=== PATIENT | female | born 1990 | race Caucasian/White ===

== ENCOUNTER 2024-12-10 18:14 | Emergency (ER) | payer BC, OTHER ==
[2024-12-10] MEDS: Lidocaine 2% Viscous Solution 15 ML UD PO ONE (18:40)
[2024-12-10] MEDS: Aluminum Hydroxide/Magnesium Hydroxide/Simethicone Susp 30 ML Cup PO ONE (18:40)
[2024-12-10 18:52] LABS: BASOPHILS ABSOLUTE AUTO 0.01 K/uL (0.00-0.20); BASOPHILS PERCENT AUTO 0.1 % (0.0-2.0); EOSINOPHILS ABSOLUTE AUTO 0.07 K/uL (0.00-0.50); EOSINOPHILS PERCENT AUTO 0.8 % (0.0-5.0); HEMATOCRIT 36.4 % (34.0-46.0); HEMOGLOBIN 12.4 g/dL (11.7-15.5); IMMATURE GRAN ABSOLUTE AUTO 0.01 10^3/uL (0.00-0.04); IMMATURE GRAN PERCENT AUTO 0.1 % (0.0-0.4); LYMPHOCYTES ABSOLUTE AUTO 1.97 K/uL (0.50-3.50); LYMPHOCYTES PERCENT AUTO 21.6 % (10.0-50.0); MEAN CORPUSCULAR HEMOGLOBIN 29.6 pg (28.2-33.3); MEAN CORPUSCULAR HGB CONC 34.1 g/dL (31.7-36.0); MEAN CORPUSCULAR VOLUME 86.9 fL (84.0-98.0); MONOCYTES ABSOLUTE AUTO 0.88 K/uL (0.00-1.00); MONOCYTES PERCENT AUTO 9.7 % (2.0-14.0); NEUTROPHILS ABSOLUTE AUTO 6.16 K/uL (1.40-7.00); NEUTROPHILS PERCENT AUTO 67.7 % (45.0-80.0); PLATELET COUNT,PLT 252 K/uL (150-350); RED BLOOD CELL COUNT 4.19 M/uL (3.77-5.09); RED CELL DISTRIBUTION WIDTH 12.4 % (11.2-14.1); WHITE BLOOD CELL COUNT,WBC 9.1 K/uL (4.0-10.2)
[2024-12-10 19:07] LABS: ALANINE AMINOTRANSFERASE,ALT 17 U/L (12-78); ALBUMIN 3.5 g/dL (3.4-5.0); ALKALINE PHOSPHATASE 98 IU/L (46-116); ANION GAP 7.8 meq/L (7-15); ASPARTATE AMNIOTRANSFERASE,AST 10 U/L (15-37); BILIRUBIN TOTAL 0.3 mg/dL (0.2-1.0); BLOOD UREA NITROGEN,BUN 15 mg/dL (7-18); CALCIUM 8.5 mg/dL (8.5-10.1); CARBON DIOXIDE,CO2 27.2 mmol/L (21.0-32.0); CHLORIDE,CL 105 mmol/L (98-107); CREATININE 0.96 mg/dL (0.51-1.17); EST CRCL DRUG DOSING (CG) 64.69 mL/min; ESTIMATED GFR 79 mL/min (>=60); GLUCOSE RANDOM 84 mg/dL (70-99); LIPASE 36 U/L (16-77); POTASSIUM,K 4.2 mmol/L (3.5-5.1); SODIUM,NA 140 mmol/L (136-145)
[2024-12-10] MEDS: Pantoprazole 40 MG Tab.CR PO ONE (19:16)
== END 2024-12-10 19:20 | disposition home or self-care (01) ==
LOC: LL.ED 18:14
DX: K29.70 Gastritis, unspecified, without bleeding (principal); F17.210 Nicotine dependence, cigarettes, uncomplicated; Z79.899 Other long term (current) drug therapy
CPT/HCPCS: 36415; 80053; 83690; 84484; 85025; 93005; 93010; 99284; A9270-GY